=== PATIENT | female | born 1995 | race Caucasian/White ===

== ENCOUNTER → 2017-04-13 | Emergency (ER) | payer OTHER ==
[~2017-04-13] VITALS: Ht 160 cm; Wt 146.1 kg
[~2017-04-13] MED LIST: AMOXICILLIN500 MG PO
== END | disposition home or self-care (01) ==
LOC: FSED 21:32
DX: J02.9 Acute pharyngitis, unspecified (principal); J00 Acute nasopharyngitis [common cold]
CPT/HCPCS: 83518; 99282